=== PATIENT | male | born 2000 | race African-American/Black ===

== ENCOUNTER 2021-04-11 19:36 | Emergency (ER) | payer OTHER ==
[~2021-04-11] VITALS: Ht 188 cm; Wt 133.4 kg
== END 2021-04-11 23:14 | disposition home or self-care (01) ==
LOC: ER 19:36
DX: R10.9 Unspecified abdominal pain (principal)

== ENCOUNTER 2023-08-15 20:30 | Emergency (ER) | payer OTHER ==
[~2023-08-15] VITALS: Ht 175.3 cm; Wt 108.9 kg
[2023-08-15 21:39] LABS: HEMATOCRIT 40.2 % (39.0-48.0); HEMOGLOBIN 13.7 g/dL (13-16.00); MEAN CELL VOLUME 83.7 fL (80.0-100.00); MEAN CORPUSCULAR HEMOGLOBIN 28.5 pg (27.00-32.0); MEAN CORPUSCULAR HGB CONC 34.1 g/dl (32.0-36.0); PLATELET COUNT 308 K/uL (150-450); RED CELL DISTRIBUTION WIDTH 13.3 % (11.5-14.5)
[2023-08-15 21:43] LABS: PH,URINE 6.5 (5.0-8.0); URINE APPEARANCE Clear; URINE BILIRRUBIN Negative (NEGATIVE); URINE BLOOD Negative; URINE COLOR Yellow; URINE GLUCOSE Negative (NEGATIVE); URINE LEUKOCYTE Negative; URINE NITRATE Negative; URINE PROTEIN 30 (NEGATIVE); URINE UROBILINOGEN 0.2 E.U./dl
[2023-08-15 21:46] LABS: URINE EPITHELIAL CELLS 4.4 uL (0.0-38.8); URINE RBC 6.3 uL (0.0-20.8); URINE WBC 17.2 uL (0.0-23.2)
[2023-08-15 21:58] LABS: URINE BACTERIA 3.7 uL (0.0-1933)
[2023-08-15] MEDS ORDERED: BUTALB/ACETAMINOPHEN/CAFFEINE 1 TAB TABLET PO ONE (22:00)
[2023-08-15 22:14] LABS: ALBUMIN 3.7 gm/dL (3.4-5.0); BILIRUBIN TOTAL 0.78 mg/dL (0.3-1.2); CALCIUM 9.2 mg/dL (8.5-10.1); CREATININE SERUM 1.01 mg/dL (0.70-1.30); GFR 91.54; GLOBULINA 3.8 G/DL (2.4-3.5); POTASSIUM 3.93 mEq/L (3.5-5.1); TOTAL PROTEIN 7.5 gm/dL (6.4-8.2)
[2023-08-15] MEDS ORDERED: CLINDAMYCIN PHOSPHATE 150 MG/ML (300mg) IV ONE (23:45)
[2023-08-15] MEDS ORDERED: MEPERIDINE HCL/PF 25 MG/ML VIAL IM ONE (23:45)
[2023-08-15] MEDS ORDERED: cloNIDine HCL 0.2 MG TABLET PO ONE (23:45)
[2023-08-15] MEDS ORDERED: MEPERIDINE HCL/PF 25 MG/ML VIAL IV ONE (23:45)
[2023-08-16] MEDS ORDERED: KETO10TA2 PO (04:57)
[2023-08-16] MEDS ORDERED: NIFE60TA3 PO (04:57)
[2023-08-16] MEDS ORDERED: AMOX-CLAV 875-1 EACH PO (04:57)
== END 2023-08-16 05:16 ==
LOC: ER 20:30
PROVIDERS: Emergency Medicine
DX: K04.7 Periapical abscess without sinus (principal); J32.9 Chronic sinusitis, unspecified; I10 Essential (primary) hypertension

== ENCOUNTER → 2024-04-26 | Emergency (ER) | payer OTHER ==
[~2024-04-26] VITALS: Ht 188 cm; Wt 136.1 kg
[~2024-04-26] MED LIST: AMOX-CLAV 875-1 EACH PO; KETO10TA2 PO; KETOROLAC TROMETHAMINE 60 MG VIAL IM ONE; NIFE60TA3 PO
== END | disposition left against medical advice (07) ==
LOC: ER 14:07
DX: M94.0 Chondrocostal junction syndrome [Tietze] (principal)

== ENCOUNTER 2025-03-09 18:38 | Emergency (ER) | payer OTHER ==
[~2025-03-09] VITALS: Ht 182.9 cm; Wt 117.9 kg
[~2025-03-09 18:38] MED LIST changes: -KETOROLAC TROMETHAMINE 60 MG VIAL IM ONE
[2025-03-09] MEDS ORDERED: ZESTRIL20 MG (18:41)
[2025-03-09] MEDS ORDERED: FAMOTIDINE/PF 20 MG in 0.9 % SODIUM CHLORIDE 8 ML IV PUSH ONE (19:15)
[2025-03-09] MEDS ORDERED: METHYLPREDNISOLONE SOD SUCC 125 MG VIAL IV ONE (19:15)
[2025-03-09] MEDS ORDERED: DIPHENHYDRAMINE HCL 50 MG/ML VIAL 1ML IV ONE (19:15)
[2025-03-09] MEDS ORDERED: CETIRIZINE HCL 10 MG TABLET PO ONE (19:15)
[2025-03-09] MEDS ORDERED: PEPCID AC20 MG PO (19:19)
[2025-03-09] MEDS ORDERED: MEDROLPACK PO (19:19)
[2025-03-09] MEDS ORDERED: ALLEGRA HIVES180 MG PO (19:19)
== END 2025-03-09 22:32 | disposition home or self-care (01) ==
LOC: ER 18:39
DX: T78.40XA Allergy, unspecified, initial encounter (principal); R21 Rash and other nonspecific skin eruption